=== PATIENT | female | born 1985 | race Caucasian/White ===

== ENCOUNTER 2017-08-03 08:54 | Inpatient (IN) | payer OTHER ==
[~2017-08-03] VITALS: Ht 172.7 cm; Wt 160.0 kg
[2017-08-03 09:17] LABS: BASOPHIL COUNT 0.1 K/uL (0-0.1); EOSINOPHIL (%) 0.7 % (0-5); EOSINOPHIL COUNT 0.1 K/uL (0-0.3); HEMATOCRIT 39.6 % (36.0-46.0); IMMATURE GRANULOCYTE (%) 1.1 % (0.0-0.7); IMMATURE GRANULOCYTE COUNT 0.2 K/uL; INSTRUMENT ABS NEUTROPHIL CT 15.1 K/uL; LYMPHOCYTE COUNT 2.2 K/uL (1.0-2.8); MCH 29.5 PG (29.0-34.0); MCHC 32.3 G/DL (30.0-36.0); MCV 91.2 FL (83-99); MEAN PLAT.VOLUME 9.6 uM^3 (9.5-12.4); MONOCYTE (%) 4.1 % (3-12); MONOCYTE COUNT 0.8 K/uL (0-0.8); NEUTROPHIL (%) 81.7 % (45-76); NEUTROPHIL COUNT 15.1 K/uL (1.8-6.4); PLATELET COUNT 373 K/uL (156-360); RBC DIS.WIDTH-CV 12.8 % (11.8-14.6); RED BLOOD COUNT 4.34 M/uL (3.80-5.20); WHITE BLOOD COUNT 18.5 K/uL (4.1-10.2)
[2017-08-03 09:31] LABS: AMYLASE 52 IU/L (1-118); CHLORIDE 105 mEq/L (99-109); POTASSIUM 4.2 mEq/L (3.7-5.4); SODIUM 138 mEq/L (136-147)
[2017-08-03 09:33] LABS: GLUCOSE 89 mg/dL (70-99)
[2017-08-03 09:34] LABS: ANION GAP 14 MEQ/L (2-14)
[2017-08-03 09:36] LABS: SERUM ETHYL ALCOHOL < 10 mg/dL
[2017-08-03 09:37] LABS: UREA NITROGEN (BUN) 12 mg/dL (9-23)
[2017-08-03 09:39] LABS: LIPASE 13 U/L (1.0-51.0)
[2017-08-03 09:41] LABS: GFR ESTIMATE (CALCULATED) > 59 mL/min/
[2017-08-03 09:45] LABS: QUANTITATIVE HCG < 4.0 MIU/ML
[2017-08-03 12:18] LABS: ADD MIUA? YES; BILIRUBIN NEGATIVE; BLOOD MODERATE; COLOR STRAW ((YELLOW)); GLUCOSE (STRIP) NEGATIVE; KETONES NEGATIVE; LEUKOCYTES NEGATIVE; NITRITE NEGATIVE; PROTEIN (STRIP) NEGATIVE; SPECIFIC GRAVITY 1.034 (1.000-1.030); UROBILINOGEN 0.2 MG/DL (0.2-1.0)
[2017-08-03 12:20] LABS: BACTERIA NONE SEEN /HPF; EPITHELIAL CELLS RARE /HPF; MUCUS NONE SEEN /LPF; RED BLOOD CELLS 0-5 /HPF (0-5); UCUL ADDED? NO; WHITE BLOOD CELLS 0-5 /HPF (0-5)
[2017-08-03 12:27] LABS: AMPHETAMINE NEGATIVE (500 ng/mL); BARBITURATES NEGATIVE (200 ng/mL); BENZODIAZEPINES NEGATIVE (150 ng/mL); COCAINE NEGATIVE (150 ng/mL); INTERNAL CONTROLS VALID? YES; METHADONE NEGATIVE (200 ng/mL); METHAMPHETAMINE NEGATIVE (500 ng/mL); OPIATES (MORPHINE) PRESUMPTIVE POSITIVE (100 ng/mL); OXYCODONE NEGATIVE (100 ng/mL); PHENCYCLIDINE NEGATIVE (25 ng/mL); PROPOXYPHENE NEGATIVE (300 ng/mL); THC CANNABINOIDS PRESUMPTIVE POSITIVE (50 ng/mL); TRICYCLIC ANTIDEPRESSANTS NEGATIVE (300 ng/mL)
[2017-08-03 12:28] LABS: ADD MEDTOX COMMENT Y
[2017-08-03] MEDS ORDERED: OCELLA TABLET1 EACH PO (14:06)
[2017-08-03] MEDS ORDERED: ATARAX,VISTARIL50 MG PO (14:06)
[2017-08-03] MEDS ORDERED: CELEXA40 MG PO (14:06)
[2017-08-03] MEDS ORDERED: PRILOSEC20 MG PO (14:07)
[2017-08-03 15:50] VITALS: BP 126/84
[2017-08-03 19:49] VITALS: BP 135/79
[2017-08-03 23:11] VITALS: BP 145/86
[2017-08-04 04:34] VITALS: BP 113/67
[2017-08-04 06:33] LABS: ALKALINE PHOSPHATASE 56 IU/L (3-129); ANION GAP 8 MEQ/L (2-14); CHLORIDE 104 MEQ/L (99-109); GFR ESTIMATE (CALCULATED) > 59 mL/min/; POTASSIUM 3.9 MEQ/L (3.7-5.4); SAMPLE HEMOLYSIS CHECK 0; SAMPLE ICTERIC CHECK 0; SAMPLE LIPEMIA CHECK 0; SODIUM 137 MEQ/L (136-147); TOTAL BILIRUBIN 0.4 MG/DL (0.0-1.0); UREA NITROGEN (BUN) 5 mg/dL (9-23)
[2017-08-04 06:35] LABS: HEMATOCRIT 31.8 % (36.0-46.0); MCH 30.3 PG (29.0-34.0); MCV 91.6 FL (83-99); MEAN PLAT.VOLUME 9.6 uM^3 (9.5-12.4); PLATELET COUNT 292 K/uL (156-360); RBC DIS.WIDTH-SD 42.9 % (39-53); WHITE BLOOD COUNT 8.8 K/uL (4.1-10.2)
[2017-08-04 06:36] LABS: GLUCOSE 135 mg/dL (70-99)
[2017-08-04 06:38] LABS: RED BLOOD COUNT 3.47 M/uL (3.80-5.20)
[2017-08-04 08:13] VITALS: BP 115/76
[2017-08-04 11:31] VITALS: BP 115/77
[2017-08-04 16:01] VITALS: BP 119/77
[2017-08-04 19:24] VITALS: BP 112/66
[2017-08-04 23:14] VITALS: BP 128/72
[2017-08-05 04:09] VITALS: BP 117/67
[2017-08-05 06:29] LABS: HEMATOCRIT 30.8 % (36.0-46.0); MCH 30.4 PG (29.0-34.0); MCHC 32.8 G/DL (30.0-36.0); MCV 92.8 FL (83-99); PLATELET COUNT 278 K/uL (156-360); RBC DIS.WIDTH-CV 12.9 % (11.8-14.6); RED BLOOD COUNT 3.32 M/uL (3.80-5.20); WHITE BLOOD COUNT 8.8 K/uL (4.1-10.2)
[2017-08-05 07:54] VITALS: BP 133/81
[2017-08-05 08:07] LABS: ALKALINE PHOSPHATASE 57 IU/L (3-129); ANION GAP 4 MEQ/L (2-14); CHLORIDE 105 MEQ/L (99-109); GFR ESTIMATE (CALCULATED) > 59 mL/min/; GLUCOSE 97 mg/dL (70-99); POTASSIUM 4.1 MEQ/L (3.7-5.4); SAMPLE HEMOLYSIS CHECK 0; SAMPLE ICTERIC CHECK 0; SAMPLE LIPEMIA CHECK 0; SODIUM 140 MEQ/L (136-147); TOTAL BILIRUBIN 0.4 MG/DL (0.0-1.0); UREA NITROGEN (BUN) 3 mg/dL (9-23)
[2017-08-05 15:41] VITALS: BP 131/80
[2017-08-05 20:12] VITALS: BP 135/84
[2017-08-05 23:52] VITALS: BP 142/65
[2017-08-06 04:04] VITALS: BP 113/65
[2017-08-06 07:07] LABS: HEMATOCRIT 28.6 % (36.0-46.0); MCH 29.7 PG (29.0-34.0); MCHC 31.8 G/DL (30.0-36.0); MCV 93.5 FL (83-99); MEAN PLAT.VOLUME 9.5 uM^3 (9.5-12.4); PLATELET COUNT 288 K/uL (156-360); RBC DIS.WIDTH-CV 12.8 % (11.8-14.6); RBC DIS.WIDTH-SD 43.7 % (39-53); RED BLOOD COUNT 3.06 M/uL (3.80-5.20); WHITE BLOOD COUNT 8.2 K/uL (4.1-10.2)
[2017-08-06 07:28] LABS: ALKALINE PHOSPHATASE 68 IU/L (3-129); ANION GAP 7 MEQ/L (2-14); CHLORIDE 104 MEQ/L (99-109); GFR ESTIMATE (CALCULATED) > 59 mL/min/; GLUCOSE 116 mg/dL (70-99); POTASSIUM 4.1 MEQ/L (3.7-5.4); SAMPLE HEMOLYSIS CHECK 0; SAMPLE ICTERIC CHECK 0; SAMPLE LIPEMIA CHECK 0; SODIUM 141 MEQ/L (136-147); TOTAL BILIRUBIN 0.4 MG/DL (0.0-1.0); UREA NITROGEN (BUN) 5 mg/dL (9-23)
[2017-08-06 08:12] VITALS: BP 115/61
[2017-08-06 13:19] VITALS: BP 124/72
[2017-08-06 15:48] VITALS: BP 126/75
[2017-08-06 19:15] VITALS: BP 128/76
[2017-08-06 23:30] VITALS: BP 115/73
[2017-08-07 03:02] VITALS: BP 127/82
[2017-08-07 07:36] VITALS: BP 124/79
[2017-08-07] MEDS ORDERED: Milk Of Magnesia,MOM PO (09:24)
[2017-08-07] MEDS ORDERED: POLYETHYLENE GL17 GM PO (09:24)
[2017-08-07] MEDS ORDERED: DOCUSATE SODIU100 MG PO (09:24)
[2017-08-07 12:02] VITALS: BP 126/66
[2017-08-07] MEDS ORDERED: LOVENOX40 MG/0.4 SQ (13:55)
[2017-08-07] MEDS ORDERED: ZITHROMAX250 MG PO (14:43)
[2017-08-07] MEDS ORDERED: DULCOLAX5 MG PO (14:44)
[2017-08-07] MEDS ORDERED: CLARITIN,ALAVAR10 MG PO (14:45)
[2017-08-07] MEDS ORDERED: NIFEREX-150,FE150 MG PO (14:46)
[2017-08-07] MEDS ORDERED: MIRALAX17 GM PO (14:49)
[2017-08-07] MEDS ORDERED: OXYCONTIN30 MG PO (14:52)
[2017-08-07] MEDS ORDERED: VALIUM10 MG PO ×2 (14:53→14:54)
[2017-08-07] MEDS ORDERED: PROTONIX40 MG PO (14:55)
[2017-08-07] MEDS ORDERED: OXYCODONE HCL10 MG PO (14:56)
[2017-08-07] MEDS ORDERED: ROXICODONE5 MG PO (14:57)
== END 2017-08-07 12:24 | DRG 511 ==
LOC: TRA 08:54 → EDOF 12:54 → 3EAST 12:54 → ENRESERV 13:03 → 3EAST 15:24
PROVIDERS: Emergency Medicine; Surgery
PROC: 0CQ0XZZ Repair Upper Lip, External Approach (ICD-10-PCS; principal; 2017-08-03)
PROC: 09QKXZZ Repair Nasal Mucosa and Soft Tissue, External Approach (ICD-10-PCS; principal; 2017-08-03)
PROC: 0PSH04Z Reposition Right Radius with Internal Fixation Device, Open Approach (ICD-10-PCS; 2017-08-06)
PROC: 2W3QX2Z Immobilization of Right Lower Leg using Cast (ICD-10-PCS; 2017-08-06)
DX: S52.591A Other fractures of lower end of right radius, initial encounter for closed fracture (principal); S52.611A Displaced fracture of right ulna styloid process, initial encounter for closed fracture; S32.058A Other fracture of fifth lumbar vertebra, initial encounter for closed fracture; S32.038A Other fracture of third lumbar vertebra, initial encounter for closed fracture; S32.028A Other fracture of second lumbar vertebra, initial encounter for closed fracture; V44.5XXA Car driver injured in collision with heavy transport vehicle or bus in traffic accident, initial encounter; W22.11XA Striking against or struck by driver side automobile airbag, initial encounter; Y92.410 Unspecified street and highway as the place of occurrence of the external cause; S32.018A Other fracture of first lumbar vertebra, initial encounter for closed fracture; S32.119A Unspecified Zone I fracture of sacrum, initial encounter for closed fracture; S02.40DA Maxillary fracture, left side, initial encounter for closed fracture; S92.001A Unspecified fracture of right calcaneus, initial encounter for closed fracture; S02.2XXA Fracture of nasal bones, initial encounter for closed fracture; S06.0X1A Concussion with loss of consciousness of 30 minutes or less, initial encounter; S01.511A Laceration without foreign body of lip, initial encounter; S10.93XA Contusion of unspecified part of neck, initial encounter; S20.01XA Contusion of right breast, initial encounter; S90.511A Abrasion, right ankle, initial encounter; S30.1XXA Contusion of abdominal wall, initial encounter; R40.2413 Glasgow coma scale score 13-15, at hospital admission; D62 Acute posthemorrhagic anemia; K59.09 Other constipation; R33.9 Retention of urine, unspecified; G89.11 Acute pain due to trauma; G47.00 Insomnia, unspecified; D72.828 Other elevated white blood cell count; F32.9 Major depressive disorder, single episode, unspecified; F41.9 Anxiety disorder, unspecified; K21.9 Gastro-esophageal reflux disease without esophagitis; F12.90 Cannabis use, unspecified, uncomplicated; F10.10 Alcohol abuse, uncomplicated; F17.210 Nicotine dependence, cigarettes, uncomplicated; Z79.3 Long term (current) use of hormonal contraceptives; Z56.0 Unemployment, unspecified; Z88.0 Allergy status to penicillin
CPT/HCPCS: 70450; 70486; 71260; 72125; 72129; 72132; 73100; 73110; 73200; 73610; 73650; 73700; 74177; 76000; 80048; 80053; 81003; 82150; 83690; 84702; 84999; 85025; 85027; 86850; 86900; 86901; 93005; 99281; 99285; C1713; G0480; J0690; J1100; J1170; J1200; J1650; J1885; J2250; J2270; J2405; J3010; J3480

== ENCOUNTER 2017-08-07 12:30 | Inpatient (IN) | payer OTHER ==
[~2017-08-07] VITALS: Ht 172.7 cm; Wt 92.1 kg
[~2017-08-07 12:30] MED LIST: ATARAX,VISTARIL50 MG PO; CELEXA40 MG PO; DOCUSATE SODIU100 MG PO; Milk Of Magnesia,MOM PO; OCELLA TABLET1 EACH PO; POLYETHYLENE GL17 GM PO; PRILOSEC20 MG PO
[2017-08-07 13:13] VITALS: BP 124/80
[2017-08-07] MEDS ORDERED: LOVENOX40 MG/0.4 SQ (13:55)
[2017-08-07] MEDS ORDERED: ZITHROMAX250 MG PO (14:43)
[2017-08-07] MEDS ORDERED: DULCOLAX5 MG PO (14:44)
[2017-08-07] MEDS ORDERED: CLARITIN,ALAVAR10 MG PO (14:45)
[2017-08-07] MEDS ORDERED: NIFEREX-150,FE150 MG PO (14:46)
[2017-08-07] MEDS ORDERED: MIRALAX17 GM PO (14:49)
[2017-08-07] MEDS ORDERED: OXYCONTIN30 MG PO (14:52)
[2017-08-07] MEDS ORDERED: VALIUM10 MG PO ×2 (14:53→14:54)
[2017-08-07] MEDS ORDERED: PROTONIX40 MG PO (14:55)
[2017-08-07] MEDS ORDERED: OXYCODONE HCL10 MG PO (14:56)
[2017-08-07] MEDS ORDERED: ROXICODONE5 MG PO (14:57)
[2017-08-07 15:09] VITALS: BP 124/77
[2017-08-08 05:23] VITALS: BP 131/70
[2017-08-08 06:53] LABS: HEMATOCRIT 29.6 % (36.0-46.0); MCH 29.7 PG (29.0-34.0); MCHC 32.1 G/DL (30.0-36.0); MCV 92.5 FL (83-99); PLATELET COUNT 372 K/uL (156-360); RBC DIS.WIDTH-CV 12.7 % (11.8-14.6)
[2017-08-08 07:21] LABS: ALKALINE PHOSPHATASE 67 IU/L (3-129); ANION GAP 9 MEQ/L (2-14); CHLORIDE 101 MEQ/L (99-109); GFR ESTIMATE (CALCULATED) > 59 mL/min/; GLUCOSE 91 mg/dL (70-99); POTASSIUM 4.1 MEQ/L (3.7-5.4); SAMPLE HEMOLYSIS CHECK 0; SAMPLE ICTERIC CHECK 0; SAMPLE LIPEMIA CHECK 0; SODIUM 139 MEQ/L (136-147); UREA NITROGEN (BUN) 8 mg/dL (9-23)
[2017-08-08 07:22] LABS: TOTAL BILIRUBIN 0.7 MG/DL (0.0-1.0)
[2017-08-08 15:04] VITALS: BP 144/57
[2017-08-09 05:35] VITALS: BP 124/63
[2017-08-09 15:04] VITALS: BP 124/68
[2017-08-10 05:28] VITALS: BP 118/65
[2017-08-10 15:33] VITALS: BP 134/67
[2017-08-11 05:49] VITALS: BP 114/64
[2017-08-11 15:22] VITALS: BP 120/58
[2017-08-12 04:04] VITALS: BP 104/62
[2017-08-12 15:15] VITALS: BP 141/72
[2017-08-13 04:54] VITALS: BP 97/56
[2017-08-13 13:10] VITALS: BP 110/52
[2017-08-13 16:23] VITALS: BP 158/89
[2017-08-14 06:04] VITALS: BP 121/68
[2017-08-14 07:06] LABS: ANION GAP 8 MEQ/L (2-14); CHLORIDE 105 MEQ/L (99-109); GFR ESTIMATE (CALCULATED) > 59 mL/min/; GLUCOSE 76 mg/dL (70-99); POTASSIUM 4.4 MEQ/L (3.7-5.4); SAMPLE HEMOLYSIS CHECK 1; SAMPLE ICTERIC CHECK 0; SAMPLE LIPEMIA CHECK 0; SODIUM 143 MEQ/L (136-147); UREA NITROGEN (BUN) 9 mg/dL (9-23)
[2017-08-14 07:07] LABS: ALKALINE PHOSPHATASE 187 IU/L (3-129); TOTAL BILIRUBIN 0.3 MG/DL (0.0-1.0)
[2017-08-14 07:13] LABS: HEMATOCRIT 30.9 % (36.0-46.0); MCH 29.5 PG (29.0-34.0); MCHC 31.7 G/DL (30.0-36.0); MCV 93.1 FL (83-99); MEAN PLAT.VOLUME 8.7 uM^3 (9.5-12.4); RBC DIS.WIDTH-SD 44.1 % (39-53); RED BLOOD COUNT 3.32 M/uL (3.80-5.20); WHITE BLOOD COUNT 9.4 K/uL (4.1-10.2)
[2017-08-14 07:16] LABS: PLATELET COUNT 550 K/uL (156-360)
[2017-08-14 15:30] VITALS: BP 143/73
[2017-08-15 05:45] VITALS: BP 112/63
[2017-08-15 15:16] VITALS: BP 125/63
[2017-08-16 05:14] VITALS: BP 126/74
[2017-08-16 15:28] VITALS: BP 124/73
[2017-08-17 06:10] VITALS: BP 111/71
[2017-08-17 16:31] VITALS: BP 122/78
[2017-08-18 05:23] VITALS: BP 114/72
[2017-08-18] MEDS ORDERED: PERCOCET 10/1 TABLET PO ×2 (12:22→12:24)
[2017-08-18 15:02] VITALS: BP 125/79
[2017-08-18] MEDS ORDERED: FOLIC ACID1 MG PO (16:03)
[2017-08-18] MEDS ORDERED: LOVENOX40 MG/0.4 SQ (16:03)
[2017-08-18] MEDS ORDERED: THERAGRAN1 TABLET PO (16:03)
[2017-08-18] MEDS ORDERED: PRILOSEC20 MG PO (16:03)
[2017-08-18] MEDS ORDERED: METAXALONE800 MG PO (16:03)
[2017-08-18] MEDS ORDERED: ASCORBIC ACID500 M3 PO (16:03)
[2017-08-18] MEDS ORDERED: NIFEREX-150,FE150 MG PO (16:03)
[2017-08-18] MEDS ORDERED: SENNA PLUS TAB1 EACH PO (16:03)
[2017-08-18] MEDS ORDERED: LYRICA75 MG PO (16:03)
[2017-08-18] MEDS ORDERED: DOCUSATE SODIU100 MG PO (16:03)
[2017-08-18] MEDS ORDERED: POLYETHYLENE GL17 GM PO (16:03)
[2017-08-19 05:06] VITALS: BP 110/68
[2017-08-19 06:55] LABS: ANION GAP 7 MEQ/L (2-14); CHLORIDE 104 MEQ/L (99-109); GFR ESTIMATE (CALCULATED) > 59 mL/min/; GLUCOSE 75 mg/dL (70-99); POTASSIUM 4.3 MEQ/L (3.7-5.4); SAMPLE HEMOLYSIS CHECK 0; SAMPLE ICTERIC CHECK 0; SAMPLE LIPEMIA CHECK 0; SODIUM 140 MEQ/L (136-147); TOTAL BILIRUBIN 0.3 MG/DL (0.0-1.0); UREA NITROGEN (BUN) 7 mg/dL (9-23)
[2017-08-19 06:56] LABS: ALKALINE PHOSPHATASE 346 IU/L (3-129)
[2017-08-19 07:11] LABS: HEMATOCRIT 36.4 % (36.0-46.0); MCH 29.9 PG (29.0-34.0); MCHC 30.8 G/DL (30.0-36.0); MCV 97.1 FL (83-99); MEAN PLAT.VOLUME 9.2 uM^3 (9.5-12.4); PLATELET COUNT 527 K/uL (156-360); RBC DIS.WIDTH-CV 13.5 % (11.8-14.6); RBC DIS.WIDTH-SD 48.1 % (39-53); RED BLOOD COUNT 3.75 M/uL (3.80-5.20); WHITE BLOOD COUNT 9.5 K/uL (4.1-10.2)
[2017-08-19 15:34] VITALS: BP 118/77
[2017-08-20 04:20] VITALS: BP 97/54
[2017-08-20 09:15] VITALS: BP 118/62
== END 2017-08-20 15:44 | DRG 560 ==
LOC: 3WEST 12:30 → ENPENDDIS 08-20 → 3WEST 08-20 15:44
PROVIDERS: Physical Medicine & Rehabilitation Pain Medicine
PROC: F07M0ZZ Range of Motion and Joint Mobility Treatment of Musculoskeletal System - Whole Body (ICD-10-PCS; principal; 2017-08-07)
DX: S32.019D Unspecified fracture of first lumbar vertebra, subsequent encounter for fracture with routine healing (principal); R26.9 Unspecified abnormalities of gait and mobility; H43.812 Vitreous degeneration, left eye; E77.8 Other disorders of glycoprotein metabolism; E88.09 Other disorders of plasma-protein metabolism, not elsewhere classified; S32.029D Unspecified fracture of second lumbar vertebra, subsequent encounter for fracture with routine healing; S32.039D Unspecified fracture of third lumbar vertebra, subsequent encounter for fracture with routine healing; S32.059D Unspecified fracture of fifth lumbar vertebra, subsequent encounter for fracture with routine healing; S32.19XD Other fracture of sacrum, subsequent encounter for fracture with routine healing; S02.40DD Maxillary fracture, left side, subsequent encounter for fracture with routine healing; S02.2XXD Fracture of nasal bones, subsequent encounter for fracture with routine healing; S92.001D Unspecified fracture of right calcaneus, subsequent encounter for fracture with routine healing; S52.571D Other intraarticular fracture of lower end of right radius, subsequent encounter for closed fracture with routine healing; S52.611D Displaced fracture of right ulna styloid process, subsequent encounter for closed fracture with routine healing; S30.1XXD Contusion of abdominal wall, subsequent encounter; V89.2XXD Person injured in unspecified motor-vehicle accident, traffic, subsequent encounter; D62 Acute posthemorrhagic anemia; M62.838 Other muscle spasm; K59.00 Constipation, unspecified; J32.9 Chronic sinusitis, unspecified; K21.9 Gastro-esophageal reflux disease without esophagitis; R33.9 Retention of urine, unspecified; F12.90 Cannabis use, unspecified, uncomplicated; F32.9 Major depressive disorder, single episode, unspecified; F41.9 Anxiety disorder, unspecified; F43.10 Post-traumatic stress disorder, unspecified; F17.210 Nicotine dependence, cigarettes, uncomplicated; Z83.3 Family history of diabetes mellitus; Z82.49 Family history of ischemic heart disease and other diseases of the circulatory system
CPT/HCPCS: 80053; 85027; 92523 GN; 97110 GO; 97530 GP; J1650